=== PATIENT | female | born 1955 | race Caucasian/White ===

== ENCOUNTER 2022-07-03 12:10 | Day surgery (SDC) | payer MEDICARE, BC ==
[~2022-07-03] VITALS: Ht 170.2 cm; Wt 91.3 kg
[2022-07-03] MEDS ORDERED: BUSP5 (12:37)
[2022-07-03] MEDS ORDERED: FERSU90EL (12:37)
[2022-07-03] MEDS ORDERED: CETI5 (12:37)
[2022-07-03] MEDS ORDERED: ATOR10 (12:37)
[2022-07-03] MEDS ORDERED: ESCI10 (12:37)
[2022-07-03] MEDS ORDERED: ACYC200 (12:37)
[2022-07-03] MEDS ORDERED: LOSARTAN-HCTZ1 EACH (12:38)
[2022-07-03] MEDS ORDERED: METF500 (12:38)
[2022-07-03] MEDS ORDERED: ONDA4ODT (12:38)
[2022-07-03] MEDS ORDERED: NYSTRIT (12:38)
[2022-07-03] MEDS ORDERED: IBUP100S (12:38)
[2022-07-03] MEDS ORDERED: FLONASE SENSIM5.9 M1 (12:38)
[2022-07-03] MEDS ORDERED: NAPR500 (12:38)
[2022-07-03] MEDS ORDERED: OMEP20ER (12:39)
== END 2022-07-03 14:30 | disposition home or self-care (01) ==
LOC: ORSCSDS 12:10
PROVIDERS: Student in an Organized Health Care Education/Training Program
PROC: 0DBL8ZX Excision of Transverse Colon, Via Natural or Artificial Opening Endoscopic, Diagnostic (ICD-10-PCS; principal; 2022-07-03 13:45)
PROC: 0DBH8ZX Excision of Cecum, Via Natural or Artificial Opening Endoscopic, Diagnostic (ICD-10-PCS; principal; 2022-07-03 13:45)
PROC: 0DBN8ZX Excision of Sigmoid Colon, Via Natural or Artificial Opening Endoscopic, Diagnostic (ICD-10-PCS; principal; 2022-07-03 13:45)
DX: K52.9 Noninfective gastroenteritis and colitis, unspecified (principal); Z86.010 Personal history of colon polyps; K57.30 Diverticulosis of large intestine without perforation or abscess without bleeding; E11.9 Type 2 diabetes mellitus without complications; K21.9 Gastro-esophageal reflux disease without esophagitis; I10 Essential (primary) hypertension; F32.A Depression, unspecified; E78.2 Mixed hyperlipidemia; F41.9 Anxiety disorder, unspecified; E66.9 Obesity, unspecified; Z68.33 Body mass index [BMI] 33.0-33.9, adult; Z79.84 Long term (current) use of oral hypoglycemic drugs; Z79.899 Other long term (current) drug therapy
CPT/HCPCS: 82947; J2250; J2704; J7120

== ENCOUNTER 2025-04-18 17:59 | Inpatient (IN) | payer MEDICARE, OTHER ==
[~2025-04-18] VITALS: Ht 167.6 cm; Wt 90.3 kg
[~2025-04-18 17:59] MED LIST: ACYC200; ATOR10 PO; BUSP5 PO; CETI5 PO; ESCI10 PO; FERSU90EL; FLONASE SENSIM5.9 M1; IBUP100S; LOSARTAN-HCTZ1 EACH; METF500; NAPR500; NYSTRIT; OMEP20ER; ONDA4ODT
[2025-04-18 18:39] LABS: BASOPHILS ABSOLUTE AUTO 0.06 K/mm3 (0.00-0.23); BASOPHILS PERCENT AUTO 1 % (0-2); EOSINOPHILS ABSOLUTE AUTO 0.17 K/mm3 (0.00-0.68); EOSINOPHILS PERCENT AUTO 2 % (0-6); Hematocrit 40.5 % (33.0-51.0); Hemoglobin 14.3 g/dL (11.5-16.0); IMMATURE GRAN ABSOLUTE AUTO 0.03 K/mm3 (0.00-0.10); IMMATURE GRAN PERCENT AUTO 0 % (0-1); LYMPHOCYTES ABSOLUTE AUTO 1.48 K/mm3 (0.84-5.20); LYMPHOCYTES PERCENT AUTO 13 % (21-46); MONOCYTES ABSOLUTE AUTO 0.85 K/mm3 (0.16-1.47); MONOCYTES PERCENT AUTO 7 % (4-13); Mean Corpuscular HGB Conc 35.3 g/dL (31.5-36.5); Mean Corpuscular Volume 95 fL (80-100); NEUTROPHILS ABSOLUTE AUTO 9.08 K/mm3 (1.96-9.15); NEUTROPHILS PERCENT AUTO 78 % (41-73); NRBC ABSOLUTE 0.00 K/mm3 (0.00-0.02); NRBC Auto 0.0 /100 WBC (0.0-0.2); Platelet Count 267 K/mm3 (150-400); RDW Coefficient Variation 11.6 % (11.7-14.2); RDW Standard Deviation 40.0 fL (35.1-46.3)
[2025-04-18] MEDS ORDERED: Ondansetron HCl 2 MG / ML 2ML Vial IV ONE (19:05)
[2025-04-18] MEDS ORDERED: Morphine Sulfate 4 MG/1 ML Injection IV ONE (19:05)
[2025-04-18] MEDS ORDERED: NS 1,000 ML IV SCH (19:05)
[2025-04-18 19:16] LABS: Alanine Aminotransfer (ALT/SGP 36.0 U/L (12-78); Albumin, Blood 3.9 g/dL (3.4-5.0); Albumin/Globulin Ratio 1.1 (0.8-1.8); Anion Gap 8.0 mmol/L (3-11); Aspartate Aminotrans (AST/SGOT 23.0 U/L (12-37); Bilirubin, Total 0.8 mg/dL (0.1-1.0); Blood Urea Nitrogen 11.0 mg/dL (8-24); CO2, Blood 27.0 mmol/L (21-32); Calcium, Blood 9.2 mg/dL (8.5-10.1); Chloride, Blood 104.0 mmol/L (98-108); Creatinine, Blood 0.86 mg/dL (0.40-1.00); Globulin, Blood 3.5 g/dL (2.2-4.0); Glucose, Blood 141.0 mg/dL (70-99); Potassium, Blood 3.3 mmol/L (3.5-5.5); Sodium, Blood 136.0 mmol/L (136-145); Total Protein, Blood 7.4 g/dL (6.4-8.2)
[2025-04-18 20:23] LABS: Source, Urine Clean Catch
[2025-04-18 20:27] LABS: Color, Urine Yellow (P-Yellow); Glucose Qualitative, Urine Neg (Neg); Ketones, Urine Neg (Neg); Leukocyte Esterase, Urine 3+ (Neg); Protein, Urine 4+ (Neg); Specific Gravity, Urine 1.010 (1.003-1.022); Urobilinogen, Urine 1+ (Normal)
[2025-04-18 20:32] LABS: Bilirubin, Urine 1+ (Neg)
[2025-04-18 20:34] LABS: Red Blood Cells, Urine TNTC /hpf (0-2); White Blood Cells, Urine TNTC /hpf (0-5)
[2025-04-18] MEDS ORDERED: Ketorolac Tromethamine 15mg Vial IV ONE (21:15)
[2025-04-18] MEDS ORDERED: CefTRIAXone Sodium 1,000 MG in NS 100 ML IV ONE (21:15)
[2025-04-19] VITALS (14 sets, daily range): BP systolic 124–156; BP diastolic 64–96
[2025-04-19] MEDS ORDERED: HYDROcodone 5-APAP 325 TAB PO PRN ×2 (01:25→19:45)
[2025-04-19] MEDS ORDERED: Ketorolac Tromethamine 15mg Vial IV PRN (01:45)
[2025-04-19] MEDS ORDERED: NS 250 ML IV PRN (02:00)
--- NOTE | 2025-04-19 02:14 | NUR ---
TOOK REPORT [facility] KIRA MIXON @ 1435.
[2025-04-19] MEDS ORDERED: METF500C PO (02:59)
[2025-04-19] MEDS ORDERED: LOSA50 PO (03:01)
[2025-04-19] MEDS ORDERED: Chromium Pico400 MCG PO (03:06)
[2025-04-19] MEDS ORDERED: IRON18 M1 PO (03:07)
[2025-04-19] MEDS ORDERED: THERA-D2000 UNIT PO (03:09)
[2025-04-19] MEDS ORDERED: C COMPLEX1000 M1 PO (03:10)
[2025-04-19] MEDS ORDERED: AZO D-MANNOSE500 M1 PO (03:15)
--- NOTE | 2025-04-19 05:21 | NUR ---
SHIFT SUMMARY NOC PT A/O X 4. PLEASANT AND COOPERATIVE WITH CARE. VSS. PT ADMIT FROM ED WITH PYELITIS WITH 9 MM STONE IN R RENAL PELVIS IDENTIFIED DURING CT SCAN. PT HAS UROLOGY CONSULT WITH DR BIRMINGHAM THAT CAN NOT BE CALLED IN UNTIL AFTER 0700 THIS MORNING DUE TO NO ANSWERING SERVICE, WILL PASS ALONG TO DAY RN DURING SHIFT CHANGE REPORT. PT LOWER ABD/ R FLANK PAIN 2/10 AFTER RECEIVING PAIN RX IN ED. PT MEDICATIONS HAVE BEEN RECONCILED WITH PT LIST. PT IS DM2 BUT TAKES METFORMIN AND DIET CONTROLLED. PT CURRENTLY RESTING WITH BED IN LOWEST POSITION, AND CALL LIGHT WITHIN REACH.
[2025-04-19 05:34] LABS: BASOPHILS ABSOLUTE AUTO 0.04 K/mm3 (0.00-0.23); BASOPHILS PERCENT AUTO 1 % (0-2); EOSINOPHILS ABSOLUTE AUTO 0.24 K/mm3 (0.00-0.68); EOSINOPHILS PERCENT AUTO 3 % (0-6); Hematocrit 38.1 % (33.0-51.0); Hemoglobin 13.3 g/dL (11.5-16.0); IMMATURE GRAN ABSOLUTE AUTO 0.02 K/mm3 (0.00-0.10); IMMATURE GRAN PERCENT AUTO 0 % (0-1); LYMPHOCYTES ABSOLUTE AUTO 1.69 K/mm3 (0.84-5.20); LYMPHOCYTES PERCENT AUTO 20 % (21-46); MONOCYTES ABSOLUTE AUTO 0.84 K/mm3 (0.16-1.47); MONOCYTES PERCENT AUTO 10 % (4-13); Mean Corpuscular HGB Conc 34.9 g/dL (31.5-36.5); Mean Corpuscular Volume 97 fL (80-100); NEUTROPHILS ABSOLUTE AUTO 5.67 K/mm3 (1.96-9.15); NEUTROPHILS PERCENT AUTO 67 % (41-73); NRBC ABSOLUTE 0.00 K/mm3 (0.00-0.02); NRBC Auto 0.0 /100 WBC (0.0-0.2); Platelet Count 242 K/mm3 (150-400); RDW Coefficient Variation 11.5 % (11.7-14.2); RDW Standard Deviation 40.7 fL (35.1-46.3)
[2025-04-19 05:54] LABS: Anion Gap 7.0 mmol/L (3-11); Blood Urea Nitrogen 12.0 mg/dL (8-24); CO2, Blood 29.0 mmol/L (21-32); Calcium, Blood 8.6 mg/dL (8.5-10.1); Chloride, Blood 106.0 mmol/L (98-108); Creatinine, Blood 0.91 mg/dL (0.40-1.00); Glucose, Blood 92.0 mg/dL (70-99); Potassium, Blood 3.4 mmol/L (3.5-5.5); Sodium, Blood 139.0 mmol/L (136-145)
[2025-04-19] MEDS ORDERED: Ondansetron HCl 2 MG / ML 2ML Vial IV PRN ×2 (06:16→07:50)
--- NOTE | 2025-04-19 06:32 | NUR ---
UROLOGIST DR BIRMINGHAM CALLED AND TALKED TO PT ABOUT STENT PLACEMENT THIS MORNING @ 0615. PT IS NOW NPO FOR SURGICAL INTERVENTION SOMETIME TODAY. GARDENIA BRAGA.
[2025-04-19] MEDS ORDERED: CefTRIAXone Sodium 1,000 MG in NS 100 ML IV SCH (07:00)
[2025-04-19] MEDS ORDERED: Prochlorperazine Edisylate 10 mg Vial IV PRN (07:50)
[2025-04-19] MEDS ORDERED: Metoclopramide HCl 5MG / ML 2ML Vial IV PRN (07:50)
[2025-04-19] MEDS ORDERED: Albuterol 2.5 MG/3 ML VIAL INH PRN (07:50)
[2025-04-19] MEDS ORDERED: FentaNYL Citrate 50 MCG/ML 2 ML Injection IV PRN ×2 (07:50→07:55)
[2025-04-19] MEDS ORDERED: HYDROmorphone HCl/Pf 1MG SYR IV PRN (07:55)
[2025-04-19] MEDS ORDERED: FentaNYL Citrate 50 MCG/ML 2 ML Injection ONE (08:24)
[2025-04-19] MEDS ORDERED: Ondansetron HCl 2 MG / ML 2ML Vial ONE (08:29)
[2025-04-19] MEDS ORDERED: Dexamethasone Sod Phos 10 MG/ML 1ML VIAL ONE (08:29)
[2025-04-19] MEDS ORDERED: Lactobacil 2-S.Thermo-Bifido 1 1 Cap PO SCH (09:00)
[2025-04-19] MEDS ORDERED: Enoxaparin 40 MG/0.4 ML SYR SC SCH ×2 (09:00→17:00)
--- NOTE | 2025-04-19 09:04 | NUR ---
04/19/25 0904 [employer] REMOVED IV TO LEFT AC. REPLACED WITH 18G IV IN RT WRIST. PT TOLERATED THIS WELL.
--- NOTE | 2025-04-19 19:14 | NUR ---
SHIFT SUMMARY S/P CYSTOSCOPY WITH R STENT PLACED TODAY FOR PYELITIS WITH 9 MM RIGHT-SIDED NEPHROLITHIASIS. PAIN CONTROLLED, SEE EMAR. RFA IV PATENT, STARTED BY DAY SURGERY. PT HAS DELGADO POST-OP IN PLACE DRAINING HEMATURIA WITHOUT CLOTS. PER MD VASQUEZ TO D/C POST-OP DAY 1 04.20.25. ALERT, ORIENTED X4, RECOVERED FROM ANESTHESIA AND INDEPENDENT IN ROOM. PLAN FOR LATER NONEMERGENT LITHOTRIPSY WITH UROLOGY.
[2025-04-20 04:35] VITALS: BP 149/84
--- NOTE | 2025-04-20 05:36 | NUR ---
SHIFT SUMMARY NOC PT A/O X 4. PLEASANT AND COOPERATIVE WITH CARE. VSS. PT POST OP DAY 1 POST STENT PLACEMENT. PT HAS DELGADO IN PLACE WITH WINE COLORED URINE. PT PAIN AND NAUSEA BEING MANAGED PER EMAR. PT DELGADO HAS ORDERS FOR DC TODAY. IV ABX INFUSING PER EMAR. PT CURRENTLY RESTING WITH BED IN LOWEST POSITION, AND CALL LIGHT WITHIN REACH.
[2025-04-20 05:53] LABS: BASOPHILS ABSOLUTE AUTO 0.02 K/mm3 (0.00-0.23); BASOPHILS PERCENT AUTO 0 % (0-2); EOSINOPHILS ABSOLUTE AUTO 0.02 K/mm3 (0.00-0.68); EOSINOPHILS PERCENT AUTO 0 % (0-6); Hematocrit 35.5 % (33.0-51.0); Hemoglobin 12.3 g/dL (11.5-16.0); IMMATURE GRAN ABSOLUTE AUTO 0.02 K/mm3 (0.00-0.10); IMMATURE GRAN PERCENT AUTO 0 % (0-1); LYMPHOCYTES ABSOLUTE AUTO 1.25 K/mm3 (0.84-5.20); LYMPHOCYTES PERCENT AUTO 14 % (21-46); MONOCYTES ABSOLUTE AUTO 0.74 K/mm3 (0.16-1.47); MONOCYTES PERCENT AUTO 8 % (4-13); Mean Corpuscular HGB Conc 34.6 g/dL (31.5-36.5); Mean Corpuscular Volume 97 fL (80-100); NEUTROPHILS ABSOLUTE AUTO 6.85 K/mm3 (1.96-9.15); NEUTROPHILS PERCENT AUTO 77 % (41-73); NRBC ABSOLUTE 0.00 K/mm3 (0.00-0.02); NRBC Auto 0.0 /100 WBC (0.0-0.2); Platelet Count 250 K/mm3 (150-400); RDW Coefficient Variation 11.5 % (11.7-14.2); RDW Standard Deviation 41.0 fL (35.1-46.3)
[2025-04-20 06:14] LABS: Alanine Aminotransfer (ALT/SGP 26.0 U/L (12-78); Albumin, Blood 3.3 g/dL (3.4-5.0); Albumin/Globulin Ratio 1.1 (0.8-1.8); Anion Gap 7.0 mmol/L (3-11); Aspartate Aminotrans (AST/SGOT 10.0 U/L (12-37); Bilirubin, Total 0.3 mg/dL (0.1-1.0); Blood Urea Nitrogen 19.0 mg/dL (8-24); CO2, Blood 28.0 mmol/L (21-32); Calcium, Blood 8.9 mg/dL (8.5-10.1); Chloride, Blood 108.0 mmol/L (98-108); Creatinine, Blood 0.82 mg/dL (0.40-1.00); Globulin, Blood 3.1 g/dL (2.2-4.0); Glucose, Blood 123.0 mg/dL (70-99); Potassium, Blood 3.8 mmol/L (3.5-5.5); Sodium, Blood 139.0 mmol/L (136-145); Total Protein, Blood 6.4 g/dL (6.4-8.2)
[2025-04-20 07:23] VITALS: BP 143/83
--- NOTE | 2025-04-20 09:35 | NUR ---
Pt sitting up on the side of the bed finsishing breakfast, a/ox4, pleasant and cooperative with care, follows commands well, reports pain at 5/10, lungs are clear t/o, on r/a, resp even and unlabored, no cough noted, hrr, no edema noted, ppp+2, cap refill<3 sec, vs stable, afebrile, piv to rfa site is clear and patent, btx4, abd flat soft nontender, alamo cath in place draining tea colored urine, skin c/w/d, maew, up indep, davidson, pt is anxious to have alamo removed, removed at this time, intact, pt tolerated well, call light in reach.
[2025-04-20] MEDS ORDERED: ACET500 PO (13:00)
[2025-04-20] MEDS ORDERED: CIPRO500 MG PO (13:03)
[2025-04-20] MEDS ORDERED: VISBIOME 112.51 EACH PO (13:05)
[2025-04-20] MEDS ORDERED: OXYC5 PO (13:07)
[2025-04-20] MEDS ORDERED: MIRALAX17 GM PO (13:08)
[2025-04-20 15:20] VITALS: BP 133/75
--- NOTE | 2025-04-20 16:06 | NUR ---
pt has been discharged to home, she already has f/u appt with urology, new meds faxed to [facility], piv removed intact, went over discharge instructions with her, she verbalized understanding, left via wheelchair with program manager slp in attendence.
== END 2025-04-20 16:20 | disposition home or self-care (01) | DRG 661 ==
LOC: ER 17:59 → MEDS 18:00
PROVIDERS: Emergency Medicine; Family Medicine; Student in an Organized Health Care Education/Training Program; Urology; ADMIT Student in an Organized Health Care Education/Training Program
PROC: BT1D1ZZ Fluoroscopy of Right Kidney, Ureter and Bladder using Low Osmolar Contrast (ICD-10-PCS; 2025-04-19)
PROC: 3E03329 Introduction of Other Anti-infective into Peripheral Vein, Percutaneous Approach (ICD-10-PCS; 2025-04-19)
PROC: 0T768DZ Dilation of Right Ureter with Intraluminal Device, Via Natural or Artificial Opening Endoscopic (ICD-10-PCS; principal; 2025-04-19 08:30)
DX: N13.6 Pyonephrosis (principal); I10 Essential (primary) hypertension; F41.9 Anxiety disorder, unspecified; F32.A Depression, unspecified; E87.6 Hypokalemia; D72.829 Elevated white blood cell count, unspecified; E11.65 Type 2 diabetes mellitus with hyperglycemia; E78.5 Hyperlipidemia, unspecified; Z79.51 Long term (current) use of inhaled steroids; Z98.890 Other specified postprocedural states; Z79.84 Long term (current) use of oral hypoglycemic drugs; Z79.899 Other long term (current) drug therapy
CPT/HCPCS: 36415; 51702; 74018; 74177; 80048; 80053; 81001; 82947; 83690; 83735; 85025; 87077; 87086; 87186; 93005; 93010; 96365-59; 96375; 96376; 99285-25; A9270; C1758; C1769; C2617; G0378; J0696; J1100; J1650; J1885; J2270; J2405; J2704; J3010; J7030; J7050; Q9967

== ENCOUNTER 2025-05-26 08:08 | Day surgery (SDC) | payer MEDICARE, BC ==
[~2025-05-26] VITALS: Ht 167.6 cm; Wt 91.3 kg
[~2025-05-26 08:08] MED LIST changes: +ACET500 PO; +AZO D-MANNOSE500 M1 PO; +C COMPLEX1000 M1 PO; +CIPRO500 MG PO; +Chromium Pico400 MCG PO; +IRON18 M1 PO; +LOSA50 PO; +Lidocaine 2% Jelly Uro-Jet ONE; +METF500C PO; +MIRALAX17 GM PO; +OXYC5 PO; +THERA-D2000 UNIT PO; +VISBIOME 112.51 EACH PO
[2025-05-26] MEDS ORDERED: CeFAZolin Sodium 2,000 MG VIAL ONE (08:22)
[2025-05-26] MEDS ORDERED: OZEMPIC2 MG/0.75 SC (08:33)
[2025-05-26] MEDS ORDERED: TRAM50 (08:34)
[2025-05-26] MEDS ORDERED: TAMS.4ER PO (08:34)
[2025-05-26] MEDS ORDERED: Aspir 8181 MG PO (08:37)
[2025-05-26] MEDS ORDERED: IBUP200 (08:37)
[2025-05-26] MEDS ORDERED: FentaNYL Citrate 50 MCG/ML 2 ML Injection ONE (08:47)
[2025-05-26] MEDS ORDERED: Ondansetron HCl 2 MG / ML 2ML Vial ONE (08:48)
[2025-05-26] MEDS ORDERED: Dexamethasone Sod Phos 10 MG/ML 1ML VIAL ONE (08:48)
--- NOTE | 2025-05-26 08:57 | NUR ---
[facility]26/25 0857 [facility] SCOPE PATCH PLACED BEHIND R EAR PER ORDER FROM DR CORTES
[2025-05-26] MEDS ORDERED: Phenylephrine HCl 100 MCG/ML-NS 10MLSYR (1MG/10ML) ONE (09:12)
[2025-05-26] MEDS ORDERED: Ketorolac Tromethamine 30mg Vial ONE (09:19)
[2025-05-30 10:01] LABS: CALCULI MASS 24 mg
== END 2025-05-26 10:29 | disposition home or self-care (01) ==
LOC: ORSCSDS 08:08 → ORD 09:30 → ORSCSDS 09:30
PROVIDERS: Urology
PROC: 0TC08ZZ Extirpation of Matter from Right Kidney, Via Natural or Artificial Opening Endoscopic (ICD-10-PCS; principal; 2025-05-26 09:30)
PROC: 0T768DZ Dilation of Right Ureter with Intraluminal Device, Via Natural or Artificial Opening Endoscopic (ICD-10-PCS; principal; 2025-05-26 09:30)
DX: N20.0 Calculus of kidney (principal); E11.9 Type 2 diabetes mellitus without complications; K21.9 Gastro-esophageal reflux disease without esophagitis; F32.A Depression, unspecified; Z79.85 Long-term (current) use of injectable non-insulin antidiabetic drugs; Z79.84 Long term (current) use of oral hypoglycemic drugs; Z79.899 Other long term (current) drug therapy
CPT/HCPCS: 82365; 82947; A9270; C1769; C1894; C2617; J0690; J1100; J1885; J2371; J2405; J2704; J3010; J7120